=== PATIENT | male | born 1935 | race Caucasian/White ===

== ENCOUNTER 2018-08-07 10:55 | Outpatient (CLI) | payer MEDICARE ==
[2018-08-07 12:28] LABS: Chol/HDL Ratio 3.16 %
== END 2018-08-07 10:56 | disposition home or self-care (01) ==
LOC: LAB 10:55
PROVIDERS: ATTEND Internal Medicine
DX: Z00.01 Encounter for general adult medical examination with abnormal findings (principal); E11.9 Type 2 diabetes mellitus without complications; E78.5 Hyperlipidemia, unspecified; I10 Essential (primary) hypertension
CPT/HCPCS: 36415; 80061; 83036

== ENCOUNTER 2018-12-11 09:07 | Outpatient (CLI) | payer MEDICARE ==
[2018-12-11 10:54] LABS: Chol/HDL Ratio 3.13 %
== END 2018-12-11 09:08 | disposition home or self-care (01) ==
LOC: LAB 09:07
PROVIDERS: ATTEND Internal Medicine
DX: E11.9 Type 2 diabetes mellitus without complications (principal); E78.5 Hyperlipidemia, unspecified; I10 Essential (primary) hypertension
CPT/HCPCS: 36415; 80061; 83036

== ENCOUNTER 2019-05-14 09:45 | Outpatient (CLI) | payer MEDICARE ==
[2019-05-14 10:26] LABS: Basophils % (Auto) 0.5 % (0.0-1.8); Eosinophils # (Auto) 0.4 K/mm3 (0.0-0.4); Hematocrit 36.4 % (35.5-45.6); Hemoglobin 11.7 gm/dl (11.8-15.2); Lymphocytes # (Auto) 2.5 K/mm3 (1.2-5.4); Mean Corpuscular HGB Conc 32 % (32-34); Mean Corpuscular Volume 78 fl (84-94); Monocytes # (Auto) 0.6 K/mm3 (0.0-0.8); Monocytes % (Auto) 8.8 % (0.0-7.3); Platelet Count 285 K/mm3 (140-440); Red Blood Count 4.64 M/mm3 (3.65-5.03); Red Cell Distribution Width 17.4 % (13.2-15.2)
[2019-05-14 10:56] LABS: Alanine Aminotransferase 12 units/L (7-56); Albumin 4.1 g/dL (3.9-5); BUN/Creatinine Ratio 22; Blood Urea Nitrogen 13 mg/dL (9-20); Calcium 9.1 mg/dL (8.4-10.2); Hemolysis Index 1; LDL Cholesterol,Direct 105 mg/dL (50-130)
[2019-05-14 11:06] LABS: Chol/HDL Ratio 3.46 %; HDL Cholesterol 43 mg/dL (40-59)
[2019-05-14 12:22] LABS: Creatinine,Urine 159.7 mg/dL (0.1-20.0); Microalbumin/Creatinine Ratio 103.3 ug/mg
[2019-05-18 11:54] LABS: Vitamin D, 25-OH, D2 <4 ng/mL
== END 2019-05-14 09:46 | disposition home or self-care (01) ==
LOC: LAB 09:45
PROVIDERS: ATTEND Internal Medicine
DX: E11.9 Type 2 diabetes mellitus without complications (principal); E78.5 Hyperlipidemia, unspecified; Z13.29 Encounter for screening for other suspected endocrine disorder; Z00.00 Encounter for general adult medical examination without abnormal findings
CPT/HCPCS: 36415; 80053; 80061; 82043; 82306; 82607; 83036; 84443; 85025

== ENCOUNTER 2021-12-03 09:47 | Outpatient (CLI) | payer MEDICARE ==
[2021-12-03 12:37] LABS: Chol/HDL Ratio 3.81 %
== END 2021-12-03 09:48 | disposition home or self-care (01) ==
LOC: LABHHL 09:47
PROVIDERS: ATTEND Internal Medicine
DX: E78.5 Hyperlipidemia, unspecified (principal)
CPT/HCPCS: 36415; 80061